=== PATIENT | female | born 1980 | race Caucasian/White ===

== ENCOUNTER 2018-04-18 20:37 | Emergency (ER) | payer SELFPAY ==
[2018-04-18 20:48] VITALS: RESP 18; O2SAT 99
--- NOTE | 2018-04-18 20:56 | C.PDOC ---
History Of Present Illness 37 year old female presents to the ED for evaluation of bilateral eyelid swelling which began a few hours prior to arrival. Patient states symptoms began after she used a new cream from [employer]. Patient states she rubbed the cream on her hands and then rubbed her eyelids. She ate a normal diet today; patient ate rice and sausage for lung and corn flakes and milk for dinner. Patient states she took a multi-vitamin tablet today because she thought it would relieve her symptoms. She denies eating seafood or peanuts, throat swelling, or difficulty breathing. Time Seen by Provider: 04/18/18 20:49 Chief Complaint (Nursing): Allergic Reaction History Per: Patient History/Exam Limitations: no limitations Onset/Duration Of Symptoms: Hrs Current Symptoms Are (Timing): Still Present Possible Cause: Other (new cream ) Additional History Per: Patient Past Medical History Reviewed: Historical Data, Nursing Documentation, Vital Signs Vital Signs: Last Vital Signs Temp 98.4 F 04/18/18 20:43 Pulse 85 04/18/18 20:43 Resp 18 04/18/18 20:43 BP 134/91 H 04/18/18 20:43 Pulse Ox 99 04/18/18 20:43 - Medical History PMH: No Chronic Diseases Surgical History: No Surg Hx Family History: States: Unknown Family Hx - Social History Hx Alcohol Use: No Hx Substance Use: No - Immunization History Hx Tetanus Toxoid Vaccination: No Hx Influenza Vaccination: No Hx Pneumococcal Vaccination: No Review Of Systems ENT: Negative for: Throat Swelling Respiratory: Negative for: Shortness of Breath, Wheezing Skin: Positive for: Other (swelling to bilateral eyelids ) Physical Exam - Physical Exam Appears: Non-toxic, No Acute Distress Skin: Normal Color, Warm, Dry, No Rash Head: Other (moderate edema to bilateral eyelids and around periorbital regions ) Eye(s): bilateral: Normal Inspection Ear(s): Bilateral: Normal Nose: Normal, No Discharge Oral Mucosa: Moist Throat: Normal, No Erythema, No Exudate Neck: Supple Chest: Symmetrical, No Deformity, No Tenderness Cardiovascular: Rhythm Regular, No Murmur Respiratory: Normal Breath Sounds, No Rales, No Rhonchi, No Wheezing Extremity: Normal ROM, Capillary Refill (less than 2 seconds ) Neurological/Psych: Oriented x3, Normal Speech, Normal Cognition ED Course And Treatment O2 Sat by Pulse Oximetry: 99 (on RA) Pulse Ox Interpretation: Normal Progress Note: Benadryl PO, Pepcid PO and Prednisone PO given. Medical Decision Making Medical Decision Making: topical allergic rxn to a "mule cream" from [place] used for aching hands no generalized allergic reaction/wheals, argues against ingested allergen Disposition Doctor Will See Patient In The: Office Counseled Patient/Family Regarding: Studies Performed, Diagnosis - Disposition Disposition: HOME/ ROUTINE Disposition Time: 21:50 Condition: GOOD Forms: [facility] ([facility]) - Clinical Impression Clinical Impression: Allergic reaction to chemical substance, Edema of eyelid - Scribe Statement The provider has reviewed the documentation as recorded by the Scribe (Jeanne Tyler) Provider Attestation: All medical record entries made by the Scribe were at my direction and personally dictated by me. I have reviewed the chart and agree that the record accurately reflects my personal performance of the history, physical exam, medical decision making, and the department course for this patient. I have also personally directed, reviewed, and agree with the discharge instructions and disposition.
[2018-04-18 22:04] VITALS: BP 118/76; PULSE 76; TEMP 97.9
== END 2018-04-18 22:05 | disposition home or self-care (01) ==
LOC: C.ER 20:37
DX: T78.49XA Other allergy, initial encounter (principal); H02.846 Edema of left eye, unspecified eyelid; H02.843 Edema of right eye, unspecified eyelid